=== PATIENT | female | born 1990 | race Caucasian/White ===

== ENCOUNTER → 2022-03-01 14:24 | Outpatient (CLI) | payer BC, SELFPAY ==
--- NOTE | ~2022-03-01 | XR_ITS ---
EXAMINATION: XR chest 2V 03/01/2022 14:42 INDICATION: Asthma. Dyspnea. PROCEDURE: 2 view chest COMPARISON: No prior studies for comparison. FINDINGS: The lungs are clear. The cardiomediastinal silhouette is within normal limits. There are no pleural effusions. There is no pneumothorax suspected. IMPRESSION: 1: NO ACUTE CARDIOPULMONARY DISEASE. Reviewed, dictated and finalized at location A.
== END ==
PROVIDERS: PCP Nurse Practitioner Adult Health; Visit Provider Nurse Practitioner Family
DX: J45.909 Unspecified asthma, uncomplicated (principal)
CPT/HCPCS: 71046

== ENCOUNTER 2022-03-22 08:08 | Outpatient (CLI) | payer BC, SELFPAY ==
--- NOTE | 2022-03-22 13:34 | WPDPFTINT ---
PFT Procedure Performed PFT Procedure Performed Spirometry with Pre/Post Bronchodilator Plethysmography (Lung Vol) Diffusing Cap (DLCO) Flow Vol Loop PFT Interpretation This is a pulmonary function test with pre and post-bronchodilator spirometry, plethysmography and diffusing capacity. The test was performed and results interpreted in accordance with the 2019 and 2005 ATS/ERS Task Force guidelines respectively using the Global Lung Function Initiative-2012 reference equations. Patient demonstrated good effort and cooperation. Reproducibility criteria were met. The quality of the pre bronchodilator spirometry maneuver was Grade A and post bronchodilator spirometry maneuver was Grade A. Findings: Spirometry: The contour the inspiratory and expiratory flow tracing are normal. The pre bronchodilator FVC is 3.98 L, 133% predicted. The pre bronchodilator FEV1 is 2.93 L, 115% predicted. The pre bronchodilator FEV1: FVC ratio 74%. The post bronchodilator FVC is 4.10 L, representing a 3% increase. The post bronchodilator FEV1 is 3.32 L, representing a 13% increase. The post bronchodilator FEV1: FVC ratio is 81%. Plethysmography: The total lung capacity is 5.26 L, 127% predicted. Functional residual capacity is 2.97 L, 133% predicted. The residual volume is 1.28 L, 105% predicted. Diffusing capacity: The diffusing capacity unadjusted for hemoglobin and carboxyhemoglobin is 26.7, 112% predicted. Diffusing capacity adjusted for alveolar volume is 5.71, 115% predicted. Impression: The spirometry is normal without evidence of an obstructive abnormality. There is significant improvement after inhaling a single dose of albuterol. The lung volumes are normal. The diffusing capacity is normal. There are no prior studies for comparison
== END 2022-03-22 08:09 | disposition home or self-care (01) ==
PROVIDERS: PCP Nurse Practitioner Adult Health; Visit Provider Nurse Practitioner Family
DX: J45.909 Unspecified asthma, uncomplicated (principal)
CPT/HCPCS: 94060; 94726; 94729

== ENCOUNTER 2024-07-02 07:29 | Outpatient (CLI) | payer OTHER, SELFPAY ==
[2024-07-02 19:06] LABS: Hematocrit 42.9 % (37.0-47.0); Hemoglobin 13.4 g/dL (12.0-15.0); Mean Corpuscular HGB Conc 31.2 g/dl (32-36); Mean Corpuscular Hemoglobin 28.8 pg (26-34); Mean Corpuscular Volume 92.3 fl (80-100); Mean Platelet Volume 10.2 fl (7.4-10.4); Platelet Count Result 249 k/mm3 (150-375); Red Blood Count 4.65 M/mm3 (4.2-5.4); Red Cell Distribution Width 13.8 % (11.5-14.5); White Blood Count 6.8 K/mm3 (4.5-10.0)
[2024-07-02 19:29] LABS: Alanine Aminotransferase 12 U/L (6-35); Albumin Level 4.6 g/dL (3.5-5.1); Alkaline Phosphatase 49 U/L (38-126); Anion Gap 7 mmol/L (4-12); Aspartate Amino Transferase 52 U/L (14-36); Bilirubin,Total 0.7 mg/dL (0.2-1.3); Blood Urea Nitrogen 13 mg/dL (7-17); Calcium 9.1 mg/dL (8.4-10.2); Carbon Dioxide 26 mmol/L (22-30); Chloride 105 mmol/L (98-107); Cholesterol 155 mg/dL (0-200); Estimated Glomerular Filt Rate > 60; Glucose 85 mg/dL (65-110); HDL Direct 64 mg/dL; Potassium 4.3 mmol/L (3.4-5.0); Sodium 138 mmol/L (137-145); Triglycerides 43 mg/dL (<150)
[2024-07-02 19:40] LABS: LDL Cholesterol Direct 67 mg/dL
== END 2024-07-02 07:30 | disposition home or self-care (01) ==
LOC: ANHBWCLAB 07:30
PROVIDERS: PCP Nurse Practitioner Adult Health; Visit Provider Nurse Practitioner Adult Health
DX: Z13.9 Encounter for screening, unspecified (principal)
CPT/HCPCS: 36415; 80053; 80061; 84443; 85027